=== PATIENT | male | born 1955 | race Caucasian/White ===

== ENCOUNTER 2018-08-08 08:00 | Day surgery (SDC) | payer BC, OTHER ==
[2018-08-06 10:07] VITALS: BMI 25.4
[2018-08-08 08:33] VITALS: RESP 16; TEMP 97.8
[2018-08-08 08:42] LABS: Glucose,Whole Blood 112 mg/dL (75-99)
[2018-08-08] MEDS ORDERED: LACTATED RINGERS 1,000 ML IV ONE (08:44)
[2018-08-08] MEDS ORDERED: LIDOCAINE 1% 20 ML VIAL (10MG/ML) FOR IV START INTRADERMA ONE (08:45)
[2018-08-08] MEDS ORDERED: PROPOFOL 10 MG/ML 20 ML VIAL IV ONE (09:29)
--- NOTE | 2018-08-08 09:40 | P.GSHP ---
History of Present Illness H&P Date: 08/08/18 Chief Complaint: GERD, rectal bleeding Patient here today for upper and lower endoscopy. The patient is a history of recent rectal bleeding. Also has a history of Babb's esophagus. GERD symptoms well-controlled at this time. Past Medical History Past Medical History: Diabetes Mellitus, GERD/Reflux, Hypertension History of Any Multi-Drug Resistant Organisms: None Reported Past Surgical History: Tonsillectomy Additional Past Surgical History / Comment(s): Colonoscopy, EGD Past Anesthesia/Blood Transfusion Reactions: Previous Problems w/ Anesthesia Additional Past Anesthesia/Blood Transfusion Reaction / Comment(s): Pt. states he gets a rash after anesthesia. Smoking Status: Never smoker - Past Family History Brother(s) Family Medical History: Cancer Additional Family Medical History / Comment(s): PROSTATE Mother Family Medical History: No Reported History Medications and Allergies Home Medications Medication Instructions Recorded Confirmed Type Bisoprolol-Hctz 10-6.25 mg [Ziac 1 each PO PC-LUNCH 07/06/15 08/08/18 History 10-6.25] Losartan Potassium 100 mg PO PC-LUNCH 08/06/18 08/06/18 History Omeprazole 20 mg PO PC-LUNCH 08/06/18 08/06/18 History amLODIPine [Norvasc] 10 mg PO PC-LUNCH 08/06/18 08/06/18 History hydrALAZINE HCL [Apresoline] 25 mg PO BID 08/06/18 08/06/18 History Allergies Allergy/AdvReac Type Severity Reaction Status Date / Time No Known Allergies Allergy Verified 08/06/18 10:00 Surgical - Exam Vital Signs Temp Pulse Resp BP Pulse Ox 97.8 F 54 L 16 121/64 96 08/08/18 08:31 08/08/18 08:31 08/08/18 08:31 08/08/18 08:31 08/08/18 08:31 Physical exam: General: Well-developed, well-nourished HEENT: Normocephalic, sclerae nonicteric Abdomen: Nontender, nondistended Extremities: No edema Neuro: Alert and oriented Results - Labs Abnormal Lab Results - Last 24 Hours (Table) 08/08/18 Range/Units 08:39 POC Glucose (mg/dL) 112 H (75-99) mg/dL Assessment and Plan (1) Rectal bleeding Narrative/Plan: Will proceed with upper and lower endoscopy Current Visit: Yes Status: Acute Code(s): K62.5 - HEMORRHAGE OF ANUS AND RECTUM SNOMED Code(s): 32866207
--- NOTE | 2018-08-08 10:12 | P.PCN ---
Date of Procedure: 08/08/18 Procedure(s) Performed: PREOPERATIVE DIAGNOSIS: Babb's esophagus, rectal bleeding POSTOPERATIVE DIAGNOSIS: Gastritis, hiatal hernia, Babb's esophagus, diverticulosis, transverse colon polyp PROCEDURE: 1. EGD with biopsy 2. Colonoscopy with biopsy [place]: [facility] [place]GEON: Brannon Watkins M.D. SPECIMENS: Antrum, Babb's esophagus, transverse colon polyp ENDOSCOPIC PROCEDURE: The patient was on the endoscopy table in the left decubitus position. The Olympus gastroscope was inserted into the oropharynx and passed under direct visualization to the region of the third portion of the duodenum. From that point the scope was slowly withdrawn inspecting all surfaces carefully. There were no neoplastic inflammatory or polypoid lesions throughout the duodenum. The pylorus was widely patent. The stomach was carefully inspected. There was mild gastritis present. A biopsy of the antrum took place to rule out H. pylori. Retroflexion revealed a moderate sized hiatal hernia. The patient's esophagus was examined. The patient had a 4-5 cm length of Babb's esophagus free of inflammation. Circumferential biopsies were taken every once in room air that point labeled Babb's esophagus. The proximal esophagus appear normal. The patient was kept on the endoscopy table in the left decubitus position. The Olympus colonoscope was inserted into the anus and passed under direct visualization to the base of the cecum. The appendiceal orifice was visualized. From that point the scope was slowly withdrawn inspecting all surfaces carefully. There were no neoplastic inflammatory or polypoid lesions throughout the cecum and ascending colon. In the mid transverse colon small polyp was identified and removed using the cold biopsy forceps. The remainder of the transverse descending sigmoid and rectum were free of any neoplastic inflammatory polypoid lesions. There was moderate diverticulosis seen scattered throughout the colon. Digital rectal examination was normal. The patient was taken to the recovery room in stable condition per anesthesia guidelines. RECOMMENDATIONS: Await biopsies results. Continue antiacid therapy.
[2018-08-08 10:31] VITALS: BP 114/76; PULSE 58
== END 2018-08-08 10:55 | disposition home or self-care (01) ==
LOC: ORWHC2ENDO 08:00
PROVIDERS: ATTEND Surgery
DX: K29.50 Unspecified chronic gastritis without bleeding (principal); K63.5 Polyp of colon; K22.70 Barrett's esophagus without dysplasia; K57.30 Diverticulosis of large intestine without perforation or abscess without bleeding; K21.9 Gastro-esophageal reflux disease without esophagitis; K44.9 Diaphragmatic hernia without obstruction or gangrene; I10 Essential (primary) hypertension; E11.9 Type 2 diabetes mellitus without complications; Z79.899 Other long term (current) drug therapy
CPT/HCPCS: 88305; 45380; 43239; J2704

== ENCOUNTER → 2022-05-16 | Outpatient (CLI) | payer OTHER ==
--- NOTE | 2022-05-16 12:09 | CA ---
Exercise Stress Test Report Name: Justin Cota Exam Date: 05/16/2022 09:15 Exam Location: [facility] Ht (in): 60 Wt (lb): 145 BSA: 1.63 Ordering Phys: Coy Fritz MD Referring Phys: DEMAR, Technologist: Scott Dominguez Age: 67 Gender: M : 1955 Procedure CPT: Indications: I10 hypertention ICD-10 Codes: Patient History: Chest Pressure, Shortness of breath and family history of heart disease Medications: Meds past 24 hrs: Pretest Chest Pain: STRESS TEST Edgar Protocol Exercise Duration (min:sec): 13:[address] Depressions (mm): Angina Score: Martinez Score: Resting HR (bpm): 56 Peak HR (bpm): 136 Resting BP (mmHg): 147 / 89 Peak BP (mmHg): 169 / 83 MPHR: 151 Target HR: 128 % MPHR: 90 METS: 14.5 Total Dose: Peak Dose: Atropine: Double Product: 01807 BP Response: Stress Termination: Reached target heart rate Stress Symptoms: No chest pain or symptoms Stress Summary: ECG ANALYSIS Resting ECG: Stress ECG: CONCLUSIONS Baseline heart rate 56 beats a minute, Baseline blood pressure 147/89 mmHg Patient exercised on a Edgar protocol for 13 minutes 30 seconds, achieving a peak heart rate of 135 beats a minute. Peak blood pressure 146/82 mmHg No symptoms noted No ECG is for ischemia No arrhythmias noted Occasional PVCs noted at Baseline with early repolarization abnormality Normal exercise stress test Dr. Krishan Jeronimo MD (Electronically Signed) Final Date: 16 May 2022 12:08
== END | disposition home or self-care (01) ==
LOC: RADNMMAIN 08:35
PROVIDERS: ATTEND Family Medicine
DX: R07.9 Chest pain, unspecified (principal); I10 Essential (primary) hypertension; E11.9 Type 2 diabetes mellitus without complications
CPT/HCPCS: 93017

== ENCOUNTER 2023-08-20 06:57 | Day surgery (SDC) | payer MEDICARE, OTHER ==
[~2023-08-20 06:57] MED LIST: LACTATED RINGERS 1,000 ML IV SCH; LIDOCAINE 1% (10MG/ML) FOR IV START INTRADERMA PRN
[2023-08-20] MEDS ORDERED: LACTATED RINGERS 1,000 ML IV ONE (07:11)
[2023-08-20 07:19] LABS: Glucose,Whole Blood 92 mg/dL (70-110)
[2023-08-20 07:48] VITALS: TEMP 98
[2023-08-20] MEDS ORDERED: PROPOFOL 10 MG/ML 20 ML VIAL IV ONE (07:58)
[2023-08-20] MEDS ORDERED: LIDOCAINE 1% INJ 10MG/ML (20 ML MDV) ONE (07:58)
--- NOTE | 2023-08-20 08:06 | P.GSHP ---
History of Present Illness H&P Date: 08/20/23 Chief Complaint: Screening 68-year-old male here for colonoscopy. Patient with history of colon polyps. Last colonoscopy 5 years ago. Hyperplastic polyp at the time. No family history of colon cancer. No bowel complaints. Patient also with history of Babb's esophagus. Past Medical History Past Medical History: Diabetes Mellitus, GERD/Reflux, Hypertension Additional Past Medical History / Comment(s): diet and exercise controlled dm History of Any Multi-Drug Resistant Organisms: None Reported Past Surgical History: Tonsillectomy Additional Past Surgical History / Comment(s): Colonoscopy, EGD Past Anesthesia/Blood Transfusion Reactions: No Reported Reaction Additional Past Anesthesia/Blood Transfusion Reaction / Comment(s): Pt. states he gets a rash after anesthesia. Smoking Status: Never smoker - Past Family History Brother(s) Family Medical History: Cancer Additional Family Medical History / Comment(s): PROSTATE Mother Family Medical History: No Reported History Medications and Allergies Home Medications Medication Instructions Recorded Confirmed Type Bisoprolol-Hctz 10-6.25 mg [Ziac 1 each PO PC-LUNCH 07/06/15 08/15/23 History 10-6.25] Losartan Potassium 100 mg PO PC-LUNCH 08/06/18 08/15/23 History Omeprazole 20 mg PO PC-LUNCH 08/06/18 08/15/23 History amLODIPine [Norvasc] 10 mg PO PC-LUNCH 08/06/18 08/15/23 History hydrALAZINE HCL [Apresoline] 25 mg PO TID 08/06/18 08/15/23 History Aspirin 325 mg PO DAILY 08/15/23 08/15/23 History Allergies Allergy/AdvReac Type Severity Reaction Status Date / Time No Known Allergies Allergy Verified 08/15/23 10:58 Surgical - Exam Vital Signs Temp Pulse Resp BP Pulse Ox 98 F 60 18 151/75 97 08/20/23 07:20 08/20/23 07:20 08/20/23 07:20 08/20/23 07:20 08/20/23 07:20 Physical exam: General: Well-developed, well-nourished HEENT: Normocephalic, sclerae nonicteric Abdomen: Nontender, nondistended Extremities: No edema Neuro: Alert and oriented Assessment and Plan (1) Colon polyps Narrative/Plan: 68-year-old male with history of colon polyps. Will proceed with colonoscopy at this time. Patient may consider repeat EGD in the future. Current Visit: Yes Status: Acute Code(s): K63.5 - POLYP OF COLON SNOMED Code(s): 29566820
--- NOTE | 2023-08-20 08:21 | P.PCN ---
Date of Procedure: 08/20/23 Procedure(s) Performed: PREOPERATIVE DIAGNOSIS: History of polyps POSTOPERATIVE DIAGNOSIS: Extensive diverticulosis PROCEDURE: Colonoscopy ANESTHESIA: [facility] SURGEON: Brannon Watkins M.D. SPECIMENS: None ENDOSCOPIC PROCEDURE: The patient was placed on the endoscopy table in the left decubitus position. The Olympus colonoscope was inserted into the anus and passed under direct visualization to the base of the cecum. The appendiceal orifice was visualized. From that point the scope was slowly withdrawn inspecting all surfaces carefully. There were no neoplastic inflammatory or polypoid lesions throughout the cecum, ascending, transverse, descending, sigmoid and rectum. There was extensive diverticulosis noted throughout the colon. Digital rectal examination was normal. The patient was taken to the recovery room in stable condition per anesthesia guidelines. RECOMMENDATIONS: Resume diet. Prior pathology reports not available to me. Last colonoscopy showed hyperplastic polyp. If patient has history of adenomatous polyps consider repeat colonoscopy 7 years. Will discuss options of repeat EGD with patient given history of Babb's esophagus.
[2023-08-20 08:47] VITALS: BP 122/77; PULSE 59; RESP 16
== END 2023-08-20 09:00 | disposition home or self-care (01) ==
LOC: ORWHC2ENDO 06:57
PROVIDERS: ATTEND Surgery
DX: Z12.11 Encounter for screening for malignant neoplasm of colon (principal); K57.30 Diverticulosis of large intestine without perforation or abscess without bleeding; Z86.010 Personal history of colon polyps; Z87.19 Personal history of other diseases of the digestive system; E11.9 Type 2 diabetes mellitus without complications; K21.9 Gastro-esophageal reflux disease without esophagitis; I10 Essential (primary) hypertension; Z90.89 Acquired absence of other organs; Z80.42 Family history of malignant neoplasm of prostate; Z79.899 Other long term (current) drug therapy; Z79.82 Long term (current) use of aspirin
CPT/HCPCS: G0105; J2001; J2704; 45378